=== PATIENT | female | born 1945 | race Two or more races ===

== ENCOUNTER 2024-03-30 12:13 | Emergency (ER) | payer OTHER, SELFPAY ==
--- NOTE | 2024-03-30 12:19 | EKG_ITS ---
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
[2024-03-30 12:34] VITALS: BP 134/73; PULSE 68; RESP 18; TEMP 37.2; O2SAT 96; BMI 33.4
--- NOTE | 2024-03-30 12:40 | PD.EDRME ---
Rapid Medical Screening Exam E Arrival date/time: 03/30/24 12:13 Chief Complaint: Flu Like Symptoms Vital signs: Vital Signs Temperature 99.0 F 03/30/24 12:34 Pulse Rate 68 03/30/24 12:34 Respiratory Rate 18 03/30/24 12:34 Blood Pressure 134/73 H 03/30/24 12:34 Pulse Oximetry (%) 96 03/30/24 12:34 Oxygen Delivery Method Room Air 03/30/24 12:34 E Narrative: Nausea/vomiting, general weakness, dizziness x 4 days. No fever or pain.
[2024-03-30 13:13] LABS: Basophils # (Auto) 0.1 Thou/mm3 (0.0-0.2); Basophils % (Auto) 1 % (0-2.5); Eosinophils # (Auto) 0.2 Thou/mm3 (0.0-0.5); Eosinophils % (Auto) 2 % (0-10); Hematocrit 42.9 % (36.0-46.0); Hemoglobin 14.7 g/dL (12.0-16.0); Immature Granulocytes % (Auto) 0 % (0-0); Immature Granulocytes Auto 0.03 Thou/mm3 (0.00-0.00); Lymphocytes # (Auto) 1.9 Thou/mm3 (1.0-4.8); Lymphocytes % (Auto) 26 % (10-50); Mean Corpuscular HGB Conc 34.3 g/dl (31.0-37.0); Mean Corpuscular Hemoglobin 31.8 pg (25.0-35.0); Mean Corpuscular Volume 93 fL (80-100); Monocytes # (Auto) 0.4 Thou/mm3 (0.0-0.8); Monocytes % (Auto) 5 % (0-12); Neutrophils # (Auto) 4.8 Thou/mm3 (1.8-7.7); Neutrophils % (Auto) 66 % (37-80); Nucleated Red Blood Cell % 0 /100 WBC (0); Platelet Count 249 Thou/mm3 (140-440); RDW Standard Deviation 41.3 fL (36.4-46.3); Red Blood Count 4.62 Miln/mm3 (4.00-5.20); White Blood Count 7.2 Thou/mm3 (3.6-11.0)
[2024-03-30 13:25] LABS: Alanine Aminotransferase 20 U/L (10-49); Albumin, Serum 4.7 gm/dL (3.4-4.8); Albumin/Globulin Ratio 1.3 (1.2-2.2); Alkaline Phosphatase 95 U/L (46-116); Anion Gap 10 (7-16); Aspartate Amino Transferase 20 U/L (0-34); BUN/Creatinine Ratio 15 Ratio (12-20); Bilirubin,Total 0.6 mg/dL (0.3-1.2); Blood Urea Nitrogen 15 mg/dL (9-23); Calcium 9.7 mg/dL (8.3-10.6); Calcium (Corrected) 9.7 mg/dL (8.5-10.1); Carbon Dioxide 25.8 mMol/L (20.0-31.0); Chloride 104 mMol/L (98-107); Estimated Creatinine Clearance 38.6 mL/min (>60); Globulin 3.5 gm/dL (2.3-3.5); Glucose 106 mg/dL (74-106); Lipase 36 U/L (12-53); Osmolality,Calculated 280 (275-295); Potassium 3.7 mMol/L (3.4-5.1); Sodium 140 mMol/L (136-145); Total Protein 8.2 gm/dL (5.7-8.2); Troponin I < 0.002 ng/mL (0.0-0.045); eGFR 57 See Note
[2024-03-30 13:51] LABS: Collection Type, Urine Clean Catch
[2024-03-30 14:04] LABS: Bacteria,Urine 4+; Bilirubin,Urine Negative (Negative); Blood,Urine 1+ (Negative); Color,Urine Lt-Yellow (Lt Yel-Yel); Glucose, Urine Negative (Negative); Ketones,Urine Negative (Negative); Leukocyte Esterase,Urine Negative (Negative); Nitrite,Urine Positive (Negative); PH,Urine 6.5 (5.0-7.0); Protein,Urine Negative (Neg - Trace); RBC,Urine 9 /hpf (0-3); Specific Gravity,Urine 1.014 (1.001-1.035); Squamous Epithelial Cell,Urine 1 /hpf (0-5); Urobilinogen,Urine Negative mg/dL (0.0-1.0); WBC,Urine 6 /hpf (0-5)
[2024-03-30 14:05] LABS: Clarity,Urine Hazy (Clear/Hazy)
--- NOTE | 2024-03-30 15:26 | XR_ITS ---
Examination: CT brain head without contrast. 2-D sagittal coronal reconstructions Date and time of exam:March 30, 2024 hours 1515 hrs. Indications: Onset vertigo today CTDI: vol (mGy):50.4 DLP: (mGycm):980 Technique: Multiple CT axial sections of the brain have been obtained, 5 mm slice thickness. Contrast has not been administered. 2-D sagittal, coronal reconstructions have been obtained Low dose protocols were performed. One or more of the following dose reduction techniques were used; automated exposure control, adjustment of the mA and/or KV according to patient size, use of iterative reconstruction technique. Findings: No significant ventricular enlargement. Intra-axial or extra-axial hemorrhage density is not seen. No mass effect or midline shift Basal cisterns are not remarkable. Fourth ventricle is midline. Cranial vault intact. Impression: Negative for acute hemorrhage, mass effect or midline shift Advise clinical correlation and follow-up accordingly
[2024-03-30 17:14] VITALS: BP 137/82; PULSE 62; RESP 21; TEMP 37.3; O2SAT 95
[2024-03-30] MEDS: SODIUM CHLORIDE 0.9% 500 ML 500 ML 999 ML IV (17:18)
[2024-03-30] MEDS: cefTRIAXone/D5w 1gm IV premix 50 ML IV (17:19)
--- NOTE | 2024-03-30 17:51 | EDNOTE_ITS ---
ED General RME/HPI General Chief complaint: Flu Like Symptoms Stated complaint: WEAK/VOMITING/SWEATY X 4 DAYS Arrival date/time: 03/30/24 12:13 RME / HPI RME / HPI narrative: Nausea/vomiting, general weakness, dizziness x 4 days. No fever or pain. Patient presented to the emergency department accompanied by her daughter who is acting as a speech pathologist assistant. The patient is here for nausea vertigo dizziness decreased appetite and vomiting for the last 4 days. Daughter stated that the patient does have a history of vertigo. And used to be on medication for that before. She has had no fever. No problems urinating. No bleeding. No falling. Past medical history is vertigo hypertension diabetes hysterectomy and no cancer. She does not smoke or drink or drugs Related Data Previous Rx's ?Medication ?Instructions ?Recorded meclizine 25 mg tablet 25 mg PO TID PRN dizziness #20 tabs 03/30/24 sulfamethoxazole 800 1 tab PO BID 7 days #14 tabs 03/30/24 mg-trimethoprim 160 mg tablet (Bactrim DS) Allergies Allergy/AdvReac Type Severity Reaction Status Date / Time No Known Allergies Allergy Verified 03/30/24 12:17 Review of Systems Review of Systems Narrative Review of Systems: REVIEW OF SYSTEM: GEN:? negative except mentioned in HPI HEENT:? negative except mentioned in HPI NECK:? negative except mentioned in HPI PULM:? negative except mentioned in HPI CARD:? negative except mentioned in HPI GI:? negative except mentioned in HPI MUSCULO/SKET: negative except mentioned in HPI SKIN:? negative except mentioned in HPI NEURO:? negative except mentioned in HPI PSYCH:? negative except mentioned in HPI Past Medical History Social History SMOKING STATUS: Never smoker ED Exam Narrative Physical exam: Aaox4. No acute distress O2 saturation is normal Heent:? perra. Eomi. No icteric. Neck: full rom.? No mass.? No jvd.? No lymphadenopathy Lungs:? clear, full, equal Heart:? s1s2.? Rrr.? No murmur, gallop or rub. Abd: soft, nondistended, nontender, no mass, no rebound or guarding, no flank tender.? No incarcerated? hernia Ext:? full rom.? No deformity.? Normal csm. Neuro:?? intact cn2 to 12.? No facial droop.? No slurred speech.? No focal deficit.? Moves all 4ext. Vertigo present prevent her from walking. She is on wheelchair. Other than that there is no neurological deficit. Skin:? no rash.? No cellulitis.? No lesion.? No laceration Psychiatrical: no suicidal.? No homicidal.? No delusion.? No hallucinating Course Quality Measures none Orders Category Date Time Status EKG (ED ONLY) *Do not use* NOW Care 03/30/24 12:[address] head/brain wo con Stat Exams 03/30/24 15:26 Completed EKG (ED Only) Stat Exams 03/30/24 12:19 Draft CBC Stat Lab 03/30/24 12:56 Completed CMP [Comprehensive Metabolic Panel] Stat Lab 03/30/24 12:56 Completed Lipase Stat Lab 03/30/24 12:56 Completed Troponin I Stat Lab 03/30/24 12:56 Completed UA [Urinalysis] Stat Lab 03/30/24 13:06 Completed Ondansetron Inj [Zofran Inj] Med 03/30/24 15:26 Discontinued 4 mg IV X1 ONE Sodium Chloride 0.9% 500 ml [Ns] 500 ml Med 03/30/24 15:26 Discontinued IV 999 mls/hr cefTRIAXone/D5w 1gm IV premix [Rocephin/D5w 1gm IV Med 03/30/24 15:27 Discontinued premix] 50 ml IV X1 Vital Signs Vital signs: Vital Signs Temperature 99.0 F 03/30/24 12:34 Pulse Rate 68 03/30/24 12:34 Respiratory Rate 18 03/30/24 12:34 Blood Pressure 134/73 H 03/30/24 12:34 Pulse Oximetry (%) 96 03/30/24 12:34 Oxygen Delivery Method Room Air 03/30/24 12:34 [facility] Patient data External records reviewed:: [facility] previous records Clinical information provided by:: patient and family Social determinants that could affect healthcare access:: none Patient has the following chronic illnesses:: Paroxysmal vertigo How is presenting disease/condition affected by chronic disease/condition?: c aused by Evaluation data The following diagnostics were reviewed and interpreted by me:: lab results, radiology exam(s) and EKG tracing(s) Lab and/or radiology exams considered but not ordered:: None Interpretation Summary: See [facility] Medications Medications considered but not ordered:: None Medication administrations:: Medication Administration History Discontinued Medications Sodium Chloride (Ns) 500 mls @ 999 mls/hr IV .Q31M ONE Stop: 03/30/24 15:56 Last Admin: 03/30/24 17:18 Dose: 999 mls/hr Documented By: DARSHANA Ceftriaxone Sodium/Dextrose (Rocephin/D5w 1gm Iv Premix) 50 mls @ 100 mls/hr IV X1 ONE Stop: 03/30/24 15:56 Last Admin: 03/30/24 17:19 Dose: 100 mls/hr Documented By: DARSHANA Ondansetron HCl (Ondansetron Inj 2 Mg/Ml Inj 2 Ml) 4 mg IV X1 ONE; Protocol Stop: 03/30/24 15:27 Last Admin: 03/30/24 17:19 Dose: Not Given Documented By: DARSHANA Non-Admin Reason: Patient Refused See above Consultations Consultation(s) initiated? (list below): No Diagnosis Differential Diagnosis ED Complaint MDM: Dizziness. Vertigo. Stroke. Most likely diagnosis given after review of the tests above:: Vertigo. Urinary tract infection Admission Indicated Admission indicated?: not indicated Explain why admission is indicated or not indicated:: No neurological deficit. Admission Request Was there a request for admission?: No Disposition Plan Disposition Plan: Discharge Discharge Attestation Discharge Attestation: The patient and all family members were given an opportunity to ask questions and understood the discharge instructions. Discharge instructions specifically effects, indications for sooner follow up or return to the emergency department, and the expected course of current diagnosis. Patient condition: Stable Medical Decision Making MDM Narrative MDM Narrative: CBC negative. CMP lipase negative. UA positive for UTI. Troponin negative. EKG is negative. CT head was reviewed and interpreted by me as follow: No bleed. No mass. No shift. No swelling. Normal ventricle. Normal bones. [facility] [address] [place] [address] [facility] Report Signed Patient: LISA ACUÑA Record#: [id number] Birthdate: 1945 Age/Sex: 79 / F Location: [facility] Attending Dr: Ordering Physician: Ajit Hudson MD Date of Service: 03/30/24 Procedure(s): CT head/brain wo con Accession Number(s): [id number] cc: Jamir Thomas MD; Kole Perez MD; Ajit Hudson MD~ Examination: CT brain head without contrast. 2-D sagittal coronal reconstructions Date and time of exam:March 30, 2024 hours 1515 hrs. Indications: Onset vertigo today CTDI: vol (mGy):50.4 DLP: (mGycm):980 Technique: Multiple CT axial sections of the brain have been obtained, 5 mm slice thickness. Contrast has not been administered. 2-D sagittal, coronal reconstructions have been obtained Low dose protocols were performed. One or more of the following dose reduction techniques were used; automated exposure control, adjustment of the mA and/or KV according to patient size, use of iterative reconstruction technique. Findings: No significant ventricular enlargement. Intra-axial or extra-axial hemorrhage density is not seen. No mass effect or midline shift Basal cisterns are not remarkable. Fourth ventricle is midline. Cranial vault intact. Impression: Negative for acute hemorrhage, mass effect or midline shift Advise clinical correlation and follow-up accordingly Dictated By: Kole Perez MD Signed By: <Electronically signed by Kole Perez MD in OV> 03/30/24 1641 DD/ 1640 TD/TT: 03/30/24 1640 Transc Twelve-lead EKG that was done at 12:32 PM and interpreted by me: Normal sinus rhythm. Heart rate of 67. Normal axis. No ST elevation or depression. No PVC. No STEMI. Regular rate and rhythm. In the emergency department the patient receiving IV fluid and also IV antibiotic. No neurological deficit once again. Vertigo prevents her from walking. But otherwise she is doing very well. I have not seen her vomiting here in the ER. Differential Diagnosis Differential Diagnosis: Dizziness. Vertigo. Stroke. Lab Data 03/30/24 12:56 03/30/24 12:56 Labs: Lab Results 03/30/24 03/30/24 Range/Units 12:56 13:06 WBC 7.2 (3.6-11.0) Thou/mm3 RBC 4.62 (4.00-5.20) Miln/mm3 Hgb 14.7 (12.0-16.0) g/dL Hct 42.9 (36.0-46.0) % MCV 93 (80-100) fL MCH 31.8 (25.0-35.0) pg MCHC 34.3 (31.0-37.0) g/dl RDW Std Deviation 41.3 (36.4-46.3) fL Plt Count 249 (140-440) Thou/mm3 Neut % (Auto) 66 (37-80) % Lymph % (Auto) 26 (10-50) % Kend[place] % (Auto) 5 (0-12) % Eos % (Auto) 2 (0-10) % Baso % (Auto) 1 (0-2.5) % Neut # (Auto) 4.8 (1.8-7.7) Thou/mm3 Lymph # (Auto) 1.9 (1.0-4.8) Thou/mm3 Kendall # (Auto) 0.4 (0.0-0.8) Thou/mm3 Eos # (Auto) 0.2 (0.0-0.5) Thou/mm3 Baso # (Auto) 0.1 (0.0-0.2) Thou/mm3 Immature Gran # (Auto) 0.03 H (0.00-0.00) Thou/mm3 Absolute Nucleated RBC 0.00 (0.00-0.00) Thou/mm3 Immature Gran % 0 (0-0) % Nucleated RBC % 0 (0) /100 WBC Sodium 140 (136-145) mMol/L Potassium 3.7 (3.4-5.1) mMol/L Chloride 104 (98-107) mMol/L Carbon Dioxide 25.8 (20.0-31.0) mMol/L Anion Gap 10 (7-16) BUN 15 (9-23) mg/dL Creatinine 1.0 (0.6-1.3) mg/dL Estim Creat Clear Calc 38.6 L (>60) mL/min eGFR 57 L (60 - ) See Note BUN/Creatinine Ratio 15 (12-20) Ratio Glucose 106 (74-106) mg/dL Calculated Osmolality 280 (275-295) Calcium 9.7 (8.3-10.6) mg/dL Corrected Calcium 9.7 (8.5-10.1) mg/dL Total Bilirubin 0.6 (0.3-1.2) mg/dL AST 20 (0-34) U/L ALT 20 (10-49) U/L Alkaline Phosphatase 95 (46-116) U/L Troponin I < 0.002 (0.0-0.045) ng/mL Total Protein 8.2 (5.7-8.2) gm/dL Albumin 4.7 (3.4-4.8) gm/dL Globulin 3.5 (2.3-3.5) gm/dL Albumin/Globulin Ratio 1.3 (1.2-2.2) Lipase 36 (12-53) U/L Ur Collection Type Clean Catch Urine Color Lt-Yellow (Lt Yel-Yel) Urine Clarity Hazy (Clear/Hazy) Urine pH 6.5 (5.0-7.0) Ur Specific [place] 1.014 (1.001-1.035) Urine Protein Negative (Neg - Trace) Urine Glucose (UA) Negative (Negative) Urine Ketones Negative (Negative) Urine Blood 1+ A (Negative) Urine Nitrite Positive (Negative) Urine Bilirubin Negative (Negative) Urine Urobilinogen (Auto) Negative (0.0-1.0) mg/dL Ur Leukocyte Esterase Negative (Negative) Urine RBC 9 H (0-3) /hpf Urine WBC 6 H (0-5) /hpf Ur Squamous Epith Cells 1 (0-5) /hpf Urine Bacteria 4+ A (None) Discharge Plan Plan Patient Disposition: HOME (Self Care) Disposition Comment: Stable for [place] home Prescriptions/Referrals Prescriptions/Med Rec: New sulfamethoxazole-trimethoprim [Bactrim DS] 800-160 mg tablet 1 tab PO BID 7 Days Qty: 14 0RF meclizine 25 mg tablet 25 mg PO TID PRN (Reason: dizziness) Qty: 20 0RF Referrals: Jamir Thomas MD [Primary Care Provider] - In 1 week Problem List Clinical Impression: Vertigo, Acute UTI Patient/Caregiver Discharge Instructions Education Materials: Urinary Tract Infections in Women, Vertigo Medicine Tx, Vertigo Staying Safe Additional Instructions: Medication as prescribed. No driving. No diving. No ladder. No panchito. Until vertigo is gone. Follow-up with your medical doctor in 3 days. Return the emergency department if condition worsens or if new symptoms develop. Print Language: German Stand Alone Forms: Niki Award Info., Patient Portal Info Letter
[2024-03-30 18:34] VITALS: BP 119/62; PULSE 60; RESP 12; TEMP 36.9; O2SAT 95
[2024-03-30 18:55] VITALS: BP 119/62; PULSE 60; RESP 18; O2SAT 96
== END 2024-03-30 18:55 | disposition home or self-care (01) ==
PROVIDERS: Physician Assistant; Emergency Provider Emergency Medicine; PCP Family Medicine; Referring Provider Emergency Medicine
DX: N39.0 Urinary tract infection, site not specified (principal); R42 Dizziness and giddiness; R94.31 Abnormal electrocardiogram [ECG] [EKG]; I10 Essential (primary) hypertension
CPT/HCPCS: 36415; 70450; 80053; 81001; 83690; 84484; 85025; 93005; 96365; 99284; J0696; J7040